=== PATIENT | female | born 1990 ===

== ENCOUNTER 2018-08-05 05:48 | Inpatient (IN) | payer OTHER ==
[~2018-08-05] VITALS: Ht 170.2 cm; Wt 77.1 kg
[2018-08-05] VITALS (18 sets, daily range): BP systolic 89–112; BP diastolic 46–71
[~2018-08-05 05:48] MED LIST: NKM
[2018-08-05] MEDS ORDERED: ceFAZolin sod 1 GM in NS 55 ML IVPB ONE (07:00)
[2018-08-05] MEDS ORDERED: ceFAZolin sod 2 GM in D5W 110 ML IVPB SCH (07:00)
[2018-08-05] MEDS ORDERED: fentaNYL 100 mcg/2 mL IV ONE (07:06)
[2018-08-05] MEDS ORDERED: Bupivacaine w/Epi 0.5% 30ml Vial INJ ONE (07:07)
[2018-08-05] MEDS ORDERED: Midazolam 2mg/2ml Inj ONE (07:07)
[2018-08-05] MEDS ORDERED: Vancomycin 1gm vial IVPB ONE (07:07)
[2018-08-05] MEDS ORDERED: Bacitracin 50000 Units Vial ONE (07:08)
[2018-08-05] MEDS ORDERED: Thrombin 5000 units TOPIC ONE (07:08)
[2018-08-05] MEDS ORDERED: Succinylcholine 20mg/ml 10ml vial ONE (07:09)
[2018-08-05] MEDS ORDERED: Rocuronium Bromide 50mg/5ml Inj IV ONE (07:09)
[2018-08-05] MEDS ORDERED: Propofol 200mg/20ml IV ONE (07:14)
[2018-08-05] MEDS ORDERED: Lidocaine 1% MPF 10mg/ml 5ml ONE (07:14)
[2018-08-05] MEDS ORDERED: TransDerm Scop 1.5mg/72HR Patch TDERMAL ONE ×2 (07:29→08:30)
--- NOTE | 2018-08-05 07:29 | Pre-Procedure Note/Attestation ---
Pre-Procedure Note/Attestation Complete Prior to Procedure Procedure Narrative: Left L45 microdecompression and microdiscectomy Indications for Procedure Pre-Operative Diagnosis: lumbar radiculopathy Attestation I attest that I discussed the nature of the procedure; its benefits; risks and complications; and alternatives (and the risks and benefits of such alternatives ), prior to the procedure, with the patient (or the patient's legal retail sales representative). I attest that, if there was a reasonable possibility of needing a blood transfusion, the patient (or the patient's legal retail sales representative) was given the [facility] standardized written summary, pursuant to the [place] Blood Safety Act ([place] Health and Safety Code # 1645, as amended). I attest that I re-evaluated the patient just prior to the surgery and that there has been no change in the patient's H&P, except as documented below: Lakhwinder Natarajan MD Aug 05, 2018 07:29
[2018-08-05] MEDS ORDERED: NS Irrig 1000ml ONE (07:30)
[2018-08-05] MEDS ORDERED: Sterile Water Irrig 1000ml IRRIG ONE (07:30)
[2018-08-05] MEDS ORDERED: Neostigmine 1mg/ml 10ml Inj ONE (07:30)
[2018-08-05] MEDS ORDERED: LR 1000ml ONE (07:30)
--- NOTE | 2018-08-05 08:23 | Anethesia Preoperative Eval ---
Anesthesia Pre-op PMH/ROS General Date of Evaluation: Aug 05, 2018 Time of Evaluation: 07:20 Anesthesiologist: Miranda ASA Score: ASA 2 Mallampati Score Class I : Soft palate, uvula, fauces, pillars visible Class II: Soft palate, uvula, fauces visible Class III: Soft palate, base of uvula visible Class IV: Only hard plate visible Mallampati Classification: Class II Surgeon: Delgado Diagnosis: Lumbar radiculopathy Surgical Procedure: L4-L5 laminotomy with decompression Anesthesia History: none Allergies: Coded Allergies: No Known Allergies (Unverified , 08/04/18) Medications: see eMAR Patient NPO?: Yes NPO Date: Aug 04, 2018 NPO Time: 1900 Past Medical History Cardiovascular: Denies: HTN, CAD, DE, valve dz, arrhythmia, other Pulmonary: Denies: asthma, COPD, SCAR, other Gastrointestinal/Genitourinary: Reports: GERD - mild; Denies: CRI, ESRD, other Neurologic/Psychiatric: Reports: other - chronic pain; Denies: dementia, CVA, depression/anxiety, TIA Endocrine: Denies: DM, hypothyroidism, steroids, other HEENT: Denies: cataract (L), cataract (R), glaucoma, CHINIK (L), CHINIK (R), other Hematology/Immune: Denies: anemia, DVT, bleeding disorder, other Musculoskeletal/Integumentary: Denies: OA, RA, DJD, DDD, edema, other PMH Narrative: as above PSxH Narrative: none Anesthesia Pre-op Phys. Exam Physician Exam Last Vital Signs Date Time Temp Pulse Resp B/P (MAP) Pulse Ox O2 Delivery O2 Flow Rate FiO2 08/05/18 06:33 97.2 63 20 112/70 (84) 100 08/05/18 06:19 Room Air Constitutional: NAD Neurologic: CN 2-12 intact Cardiovascular: RRR, no M/R/G Respiratory: CTA Gastrointestinal: S/NT/ND Airway Exam Mallampati Score: Class II MO: full Neck: flexible Teeth: intact Dentures: no upper, no lower Anesthesia Pre-op A/P Labs see chart Urine Test Test 08/05/18 06:00 Urine HCG, Qualitative Negative (NEGATIVE) Studies Pre-op Studies: EKG - NSR Risk Assessment & Plan Assessment: ASA 2 Plan: GA with ETT PONV prevention prone position Status Change Before Surgery: No Pre-Antibiotics Drug: Ancef 1gr Given Within 1 Hr of Incision: Yes Time Given: 08:10 Clinton Jean MD Aug 05, 2018 08:23
[2018-08-05] MEDS ORDERED: LR 1000ml 1,000 ML IVLG SCH (08:24)
[2018-08-05] MEDS ORDERED: Ketorolac 30mg Inj ONE (08:29)
[2018-08-05] MEDS ORDERED: Sodium Chloride 10ml vial INJ ONE (08:29)
[2018-08-05] MEDS ORDERED: Glycopyrrolate 0.2mg/ml 1ml Vial ONE (08:29)
[2018-08-05] MEDS ORDERED: Morphine Sulfate 10mg/ml Inj ONE (08:29)
[2018-08-05] MEDS ORDERED: Hydromorphone 0.5mg/0.5ml inj IVP PRN (08:30)
[2018-08-05] MEDS ORDERED: Metoclopramide 10mg/2ml Inj IVP PRN (08:30)
[2018-08-05] MEDS ORDERED: Acetaminophen (Non formulary) 100 ML IV ONE (08:30)
[2018-08-05] MEDS ORDERED: DiphenhydrAMINE 50mg/ml Inj IVP PRN (08:30)
[2018-08-05] MEDS ORDERED: Ketorolac 30mg Inj IV PRN (08:30)
[2018-08-05] MEDS ORDERED: Meperidine 50mg/ml Inj(FOR RIGORS ONLY) IV PRN (08:30)
[2018-08-05] MEDS ORDERED: Midazolam 2mg/2ml Inj IVP PRN (08:30)
[2018-08-05] MEDS ORDERED: Naloxone 0.4mg/ml Inj IVP PRN (09:30)
[2018-08-05] MEDS ORDERED: HYDROmorphone 1mg/ml Carpuject IVP PRN (09:30)
[2018-08-05] MEDS ORDERED: HYDROmorphone 1mg/ml Carpuject SUBQ PRN (09:30)
[2018-08-05] MEDS ORDERED: HYDROcodone/Acetamin 7.5/325 tab ORAL PRN (09:30)
[2018-08-05] MEDS ORDERED: HYDROcodone/Acetamin 5/325 tab ORAL PRN (09:30)
--- NOTE | 2018-08-05 09:54 | Immediate Post-Op Evaluation ---
Immediate Post-Op Evalulation Immediate Post-Op Evalulation Procedure: L4-L5 laminotomy with discectomy and decompression Date of Evaluation: Aug 05, 2018 Time of Evaluation: 09:53 IV Fluids: 1200 Blood Products: none Estimated Blood Loss: 50 Urinary Output: none Blood Pressure Systolic: 98 Blood Pressure Diastolic: 52 Pulse Rate: 80 Respiratory Rate: 20 O2 Sat by Pulse Oximetry: 99 Temperature (Fahrenheit): 97.5 Pain Score (1-10): 1 Nausea: No Vomiting: No Complications none Patient Status: reacts, patent, none Hydration Status: adequate Clinton Jean MD Aug 05, 2018 09:54
--- NOTE | 2018-08-05 10:33 | Brief Operative Note ---
Immediate Post Operative Note Operative Note Pre-op Diagnosis: lumbar radiculopathy with L L45 HNP Procedure: L L45 microdecompression and microdiscectomy Post-op Diagnosis: RADHA Post-op Diagnosis: same as pre-op Findings: consistent w/pre-op dx studies Surgeon: Delgado Yoghurt Maker: None Anesthesiologist: Miranda Anesthesia: general Specimen: yes Complications: none Condition: stable Fluids: 1 L Estimated Blood Loss: minimal - 30cc Drains: none Implant(s) used?: No Lakhwinder Natarajan MD Aug 05, 2018 10:33
--- NOTE | 2018-08-05 11:15 | NUR ---
NURSE NOTES: Received report from Miriam Raya, KENNEL ASSISTANT. Patient asleep and denies any pain at this time. No respiratory distress noted. Surgical back site dressing is dry and intact. Bed in lowest position. Call light within reach. Will continue to monitor.
[2018-08-05] MEDS: D5 1/2NS 1,000 ML IV SCH ×2 (11:56→21:00)
[2018-08-05] MEDS ORDERED: ceFAZolin sod 1 GM in D5W 55 ML IV SCH (14:00)
--- NOTE | 2018-08-05 14:15 | Diagnostic Imaging Report ---
Indication: Intraoperative imaging Comparison: None Findings: Single crosstable view of the lumbar spine showing surgical instrument posterior to the L5 pedicle. IMPRESSION: Intraoperative localization image
[2018-08-05] MEDS: ceFAZolin sod 1 GM in D5W 55 ML IV SCH (16:09)
--- NOTE | 2018-08-05 17:20 | NUR ---
NURSE NOTES: PATIENT DOING VERY WELL. ASSISTED TO BATHROOM. GAIT STEADY. REVIEWED SPINE PRECAUTIONS AND DEMONSTRATED BY PATIENT. RETURN DEMONSTRATION VERY GOOD. STATES PAIN 6/10. PRIMARY NURSE TO GIVE PAIN MEDS. INSTRUCTED ON HOW TO WEAR QUICKDRAW BRACE.
[2018-08-05] MEDS: Docusate 100mg cap ORAL SCH (17:44)
--- NOTE | 2018-08-05 19:31 | NUR ---
HAND-OFF: Report given to ZORAN Newman.
--- NOTE | 2018-08-05 19:48 | NUR ---
NURSE NOTES: patient received. patient in no acute distress at this time. patient appears to be in no pain at this time. patient resting. patient IV intact and asymptomatic. wound dry and intact. bed in lowest position and locked. call light within reach. bed alarm on will continue to monitor.
--- NOTE | 2018-08-05 20:08 | Cardiology Progress Note ---
Assessment/Plan Assessment/Plan [id number] Objective Last 24 Hour Vital Signs Date Time Temp Pulse Resp B/P (MAP) Pulse Ox O2 Delivery O2 Flow Rate FiO2 08/05/18 16:00 98.4 64 18 100/63 (75) 98 08/05/18 14:15 98.4 71 18 102/71 (81) 99 08/05/18 13:15 97.7 68 18 97/60 (72) 100 08/05/18 12:15 97.5 75 18 89/66 (74) 99 08/05/18 11:45 98.5 70 18 90/57 (68) 99 08/05/18 11:20 Nasal Cannula 3.0 Nasal Cannula 3.0 08/05/18 11:15 98.3 72 17 100/58 (72) 100 08/05/18 11:15 97.4 08/05/18 10:58 97.4 73 14 110/56 100 Nasal Cannula 3 08/05/18 10:50 71 15 109/66 100 Nasal Cannula 3 08/05/18 10:40 69 16 98/62 100 Nasal Cannula 3 08/05/18 10:30 68 18 100/62 100 Nasal Cannula 3 08/05/18 10:20 68 15 96/58 100 Simple Mask 6 08/05/18 10:10 69 13 91/50 100 Simple Mask 6 08/05/18 10:00 74 14 92/49 100 Simple Mask 6 08/05/18 09:55 86 16 89/46 100 Simple Mask 6 08/05/18 09:54 80 20 99 08/05/18 09:50 90 18 92/56 100 Simple Mask 6 08/05/18 09:42 97.2 95 22 98/60 100 Simple Mask 6 08/05/18 06:33 97.2 63 20 112/70 (84) 100 08/05/18 06:19 Room Air Laboratory Tests Test 08/05/18 06:00 Urine HCG, Qualitative Negative (NEGATIVE) Rojas Ba MD Aug 05, 2018 20:08
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
--- NOTE | 2018-08-05 23:48 | NUR ---
HAND-OFF: Report given to CAO rn.
--- NOTE | 2018-08-05 23:48 | NUR ---
NURSE NOTES: Received report from Shu MEEHAN. Pt is A&O x4, laying in bed. No signs of pain or distress. IV site dry & intact. Family member at bedside. Call light in reach, bed in lowest position, side rails up x2. Will continue to monitor pt.
[2018-08-06] VITALS: BP 108/68
[2018-08-06] MEDS: HYDROcodone/Acetamin 7.5/325 tab ORAL PRN ×2 (00:01→08:10)
[2018-08-06] MEDS: ceFAZolin sod 1 GM in D5W 55 ML IV SCH ×2 (00:02→08:56)
[2018-08-06 04:00] VITALS: BP 105/59
[2018-08-06] MEDS: D5 1/2NS 1,000 ML IV SCH (07:16)
--- NOTE | 2018-08-06 07:29 | NUR ---
HAND-OFF: Report given to Kathy MEEHAN. Pt in stable condition.
[2018-08-06 08:00] VITALS: BP 109/65
--- NOTE | 2018-08-06 08:00 | NUR ---
NURSE NOTES: Received patient in bed, resting and alert X4. Patient's mother at bedside. No signs of respiratory distress, IS at bedside. IV intact and asymptomatic. Patient able to move lower extremities 5/5, no numbness per patient. Verbalized PT eval to be done. Will continue to monitor.
[2018-08-06] MEDS: Docusate 100mg cap ORAL SCH (08:10)
[2018-08-06 09:40] VITALS: BP 109/65
--- NOTE | 2018-08-06 09:40 | 48 Hour Post Anesthesia Eval ---
Post Anesthesia Evaluation Procedure: L4-L5 laminotomy with discectomy and decompression Date of Evaluation: Aug 06, 2018 Blood Pressure Systolic: 109 0: 65 Pulse Rate: 68 Respiratory Rate: 20 Temperature (Fahrenheit): 98.5 O2 Sat by Pulse Oximetry: 100 Airway: patent Nausea: No Vomiting: No Pain Intensity: 0 Hydration Status: adequate Cardiopulmonary Status: at base[place] Mental Status/LOC: patient returned to baseline Post-Anesthesia Complications: 0 Follow-up care needed: N/A - further care as per primary team Michaela Heard MD Aug 06, 2018 09:40
[2018-08-06] MEDS ORDERED: NORCO 5-325 TA1 EACH ORAL (09:46)
[2018-08-06] MEDS ORDERED: NAPROXEN250 MG ORAL (09:46)
--- NOTE | 2018-08-06 10:44 | NUR ---
NURSE NOTES: Patient discharged 1045 in private vehicle with family. All belongings taken by patient. IV and ID and removed. Discharge packet given to patient. Educated on post op care, setting up appointment with Dr. Natarajan, and prescription pain medication. Patient discharged in stable condition.
--- NOTE | 2018-08-06 11:04 | NUR ---
REHAB MED PT NOTE CONSULT RECEIVED, CHRIS ALEJO, PATIENT WILL BENEFIT FROM SKILLED PT DURING STAY FOR RETURN TO [facility]. LOG ROLL SHOWN. SPINAL PRECAUTIONS REVIEWED. RECOMMEND HOME AT [place]. PLAN OF CARE INITIATED. EULALIA GARY PT DPT Addendum: 08/06/18 at 1104 by EULALIA GARY PT Amended: Links added.
--- NOTE | 2018-08-06 19:30 | Operative Note - Dictated ---
DATE OF OPERATION: 08/05/2018 PREOPERATIVE DIAGNOSIS: L4-L5 disc desiccation, annular fissure, disc protrusion and left lower extremity radiculopathy. POSTOPERATIVE DIAGNOSIS: L4-L5 disc desiccation, annular fissure, disc protrusion and left lower extremity radiculopathy. PROCEDURE PERFORMED: 1. Left-sided L4-L5 medial facetectomy, laminotomy, foraminotomy, and microdiskectomy. 2. Intraoperative use of fluoroscopy. 3. Intraoperative use of microscope. SURGEON: Lakhwinder Natarajan M.D. ANESTHESIA: General endotracheal anesthesia. ANESTHESIOLOGIST: Clinton Jean M.D. EBL: 30 mL. FLUIDS: One liters of crystalloids. INTRAOPERATIVE FINDINGS: Herniated nucleus pulposus, left paracentral at L4-L5 causing impingement of the traversing L5 nerve root with mild left neuroforaminal stenosis. INDICATIONS: A pleasant female who failed nonoperative treatments. Option for above treatment was given. Risks, alternatives, and benefits were discussed with the patient at length. Risks include, but are not limited to, anesthesia complications including , medical complications including liver, kidney, cardiopulmonary deficits, bleeding, infection, dural tear, CSF leak, nerve root injury, pars fracture, instability, reherniation, and continued symptoms. The patient understood and wished to proceed. DESCRIPTION OF OPERATION: The patient was brought into the operating room supine on a stretcher. Subsequently, appropriate IV lines were placed and 2 g of Ancef was administered. A surgical time-out was called. Anesthesia was induced. The patient was successfully intubated. Sequential compression devices were placed onto the bilateral lower extremities. All bony prominences were well padded and the abdomen was assured to lay freely. The L4-L5 interspace was positively identified via preoperative fluoroscopy and an indelible marker was used to jeffery the midline. The patient was prepped and draped in the usual sterile fashion with alcohol, chlorhexidine scrub, ChloraPrep, and Ioban draping. At this point, I was prepped and gowned in the usual sterile fashion. A vertical incision was carried out at L4-L5 with a scalpel and with monopolar cautery, a subperiosteal dissection was made through the dorsal lumbar fascia to the left L4 and L5 lamina. A Coremaker retractor system was set into place and a radiopaque marker was placed at the lower pedicle level. Lateral fluoroscopy was done and the left L5 pedicle was positively identified and thus L4-L5 interspace was positively identified. At this point, attention was diverted to doing the laminotomy with a high-speed drill, straight and curved curettes. A #2 through #5 Kerrison punches and interlaminar laminotomy at L4 and L5 was done and ligamentum flavum was carefully removed with curved curettes, nerve probe as well as #2 through #5 Kerrison punches. The medial aspect of the facet was removed and the lateral recess was decompressed. There was mild lateral recess stenosis by bony overgrowth which was removed with a high-speed drill, straight and curved curettes, #2 and Kerrison punches. At this point with a #4 [place] and a nerve root retractor, the neural elements were carefully medially retracted and a disk herniation that was found left paracentral, a slit incision was made in the posterior annulus and with the use of a Shanice pituitary rongeur, Shakeel, Chuy curette, dental probe, Adela probe a microdiskectomy was accomplished until all herniated disc material and loose disc material were removed until the floor of the canal was flat. Disc space irrigation was done. There was no further disk material. All the neural elements were completely decompressed. A foraminotomy for the exiting left L5 nerve root also done until the neural foramina was completely patent. At this point, attention was diverted to closure. The hemostasis was achieved with Gelfoam, thrombin, and FloSeal. There was no bleeding at the end of the case and therefore drain was deemed not be necessary. A Valsalva 40 mmHg was done. There was no CSF leak. Copious triple antibiotic irrigation was used multiple times. The dorsal lumbar fascia was closed with 2-0 Vicryl sutures. The subcuticular layer was closed with 2-0 Vicryl sutures. The skin was closed with Dermabond. Sterile dressing and tape was placed. All sponge, needle, and instrument counts were correct. There was no complication. The patient was turned supine, was extubated in stable condition, was found to be neurovascularly intact and was taken to recovery room in stable condition. There were no complications at the end of case. Lakhwinder Natarajan M.D. DR: Matt JOB#: [id number] CC:
--- NOTE | 2018-08-09 14:42 | Discharge Summary ---
Discharge Summary Hospital Course Date of Admission Aug 05, 2018 at 05:48 Date of Discharge Aug 06, 2018 at 10:46 Admitting Diagnosis lumbar radiculopathy with herniated nucleus pulposa Reason for Hospitalization: elective surgery HPI Brandi Duran is a 27 year old female who was admitted on Aug 05, 2018 at 05: 48 for L4-5 Radiculopathy with herniated nucleus pulposa. Patient failed nonoperative management. Patient was admitted for elective surgery. Consultations Dr Ba -IM/cardio Procedures s/p 08/05/[address] Natarajan 1. Left-sided L4-L5 medial facetectomy, laminotomy, foraminotomy, and microdiskectomy. 2. Intraoperative use of fluoroscopy. 3. Intraoperative use of microscope Hospital Course status post surgery course of recovery uneventful initially IV fluids s/p perioperative antibiotics neurovascular status closely monitored, stable incision clean dry and intact pain management addressed ; pain controlled hemodynamically stable ambulated with PT fall precautions maintained; safe for ambulation tolerated diet , IV fluids discontinued GI prophylaxis provided antiemetics were on board as needed voided freely bowel regimen instituted patient was stable for discharge discharge instructions provided follow up with surgeon as outpatient FINAL DIAGNOSES L4-L5 disc desiccation, annular fissure, disc protrusion and left lower extremity radiculopathy. Lumbar radiculopathy with left L4-5 HNP s/p Left L4- 5 microdecompression and microdiscectomy Discharge Medications Continued Medications: Hydrocodone Bit/Acetaminophen 5-325* ([place] 5-325*) 1 Each Tablet 1 TAB ORAL Q4H PRN for For Pain, TAB 0 Refills (This prescription has been renewed) Naproxen* (Naprosyn*) 250 Mg Tablet 500 MG ORAL TWICE A DAY, #60 TAB 0 Refills (This prescription has been renewed) Discharge Condition Upon Discharge: stable Discharge Disposition Patient was discharged to Home () Discharge Instructions Discharge Instructions Special Instructions I have been assigned to complete a D/C Summary on this account. I was not involved in the patient management Hawa Nolasco NP Aug 09, 2018 14:42
== END 2018-08-06 10:46 | disposition home or self-care (01) | DRG 520 ==
LOC: SDSOVERFLO 05:48 → 3E 11:10
PROC: 0SB20ZZ Excision of Lumbar Vertebral Disc, Open Approach (ICD-10-PCS; principal; 2018-08-05 07:30)
DX: M51.16 Intervertebral disc disorders with radiculopathy, lumbar region (principal); V89.2XXS Person injured in unspecified motor-vehicle accident, traffic, sequela
CPT/HCPCS: 36415; 72020; 76000; 81025; 86850; 86900; 86901; 87081; 94003; 94150; J2250; J2405; J2710; J2765